=== PATIENT | female | born 1965 | race Caucasian/White ===

== ENCOUNTER 2017-02-06 16:35 | Outpatient (CLI) | payer OTHER ==
--- NOTE | 2017-02-06 18:46 | RAD ---
FOUR VIEWS RIGHT KNEE: History: Lateral and anterior pain. Comparison: None. FINDINGS: Joint spaces are preserved. No malalignment. No fracture. No joint effusion. IMPRESSION: Unremarkable four views of right knee. POS: [facility]
== END 2017-02-06 16:36 | disposition home or self-care (01) ==
LOC: RAD 16:35
PROVIDERS: ATTEND Family Medicine
DX: S80.01XA Contusion of right knee, initial encounter (principal); W19.XXXA Unspecified fall, initial encounter

== ENCOUNTER 2017-05-12 13:52 | Outpatient (CLI) | payer OTHER | END 2017-05-12 13:53 | disposition home or self-care (01) | LOC: BICMAMMO 13:52 | PROVIDERS: ATTEND Obstetrics & Gynecology | DX: Z12.31 Encounter for screening mammogram for malignant neoplasm of breast (principal); R92.1 Mammographic calcification found on diagnostic imaging of breast | CPT/HCPCS: 77063; 77067 ==

== ENCOUNTER 2017-06-14 15:27 | Outpatient (CLI) | payer OTHER | END 2017-06-14 15:28 | disposition home or self-care (01) | LOC: BICMRI 15:27 | PROVIDERS: ATTEND Family Medicine | DX: R51 Headache (principal) | CPT/HCPCS: 70551 ==

== ENCOUNTER 2018-10-01 12:14 | Outpatient (CLI) | payer OTHER ==
--- NOTE | 2018-10-01 12:38 | MMO ---
Bilateral MAMMO Bilat Screen [facility]. CLINICAL HISTORY: Patient is 53 years old and is seen for screening. The patient has no family history of breast cancer. The patient has no personal history of cancer. VIEWS: The views performed were: bilateral craniocaudal with tomosynthesis and bilateral mediolateral oblique with tomosynthesis. FILMS COMPARED: The present examination has been compared to prior imaging studies performed at [facility] on 09/16/2010, 01/23/2012 and 05/12/2017. MAMMOGRAM FINDINGS: There are scattered fibroglandular densities. There are benign appearing calcifications seen in the left breast. There are no suspicious masses, suspicious calcifications, or new areas of architectural distortion. IMPRESSION: THERE IS NO MAMMOGRAPHIC EVIDENCE OF MALIGNANCY. A ROUTINE FOLLOW-UP MAMMOGRAM IN 1 YEAR IS RECOMMENDED. THE RESULTS OF THIS EXAM WERE SENT TO THE PATIENT. ACR BI-RADS Category 2 - Benign finding MAMMOGRAPHY NOTE: 1. A negative mammogram report should not delay a biopsy if a dominant of clinically suspicious mass is present. 2. Approximately 10% to 15% of breast cancers are not detected by mammography. 3. Adenosis and dense breasts may obscure an underlying neoplasm.
== END 2018-10-01 12:15 | disposition home or self-care (01) ==
LOC: BICMAMMO 12:14
PROVIDERS: ATTEND Family Medicine
DX: Z12.31 Encounter for screening mammogram for malignant neoplasm of breast (principal)
CPT/HCPCS: 77063; 77067

== ENCOUNTER 2019-06-26 15:10 | Outpatient (CLI) | payer OTHER ==
--- NOTE | 2019-06-26 16:19 | MRI ---
MRI of thecervical spine: 06/26/2019 COMPARISON:None available HISTORY:Cervical radiculopathy, neck pain with bilateral hand numbness TECHNIQUE: Multiplanar multisequence MR imaging of thecervical spine without contrast Findings:Sagittal STIR imaging demonstrates no focal area of osseous marrow edema. There is 3 mm of anterolisthesis at C4-5. C2-3: There is facet hypertrophy on the left with mild left neural foraminal stenosis. No significant central canal or right neural foraminal stenosis. C3-4: Bilateral facet and uncovertebral osteophyte formation, right greater than left. Disc space yumi rowing with disc desiccation and mild disc bulge. No significant central canal stenosis. Mild left and moderate right neural foraminal stenosis. C4-5: There is disc space narrowing with disc desiccation and mild disc bulge partially patient the v entral thecal sac and causing mild central canal stenosis. Mild neural foraminal stenosis on the right secondary to facet and uncovertebral osteophyte formation. C5-6: There is disc space narrowing with disc desiccation and mild disc bulge. This partially effaces the ventral thecal sac and causes mild central canal stenosis. Bilateral facet and uncovertebral osteophyte formation, right greater than left. Moderate bilateral neural foraminal stenosis, right gr eater than left. C6-7: There is disc space narrowing and disc desiccation with mild disc bulge. Partial effacement of the ventral thecal sac. No significant central canal stenosis. No significant neural foraminal stenosis. C7-T1: Mild bilateral facet hypertrophy. No significant central canal or neural foraminal stenosis. D isc space narrowing with disc desiccation and mild disc bulge noted. No focal area of abnormal signal intensity identified within the cervical cord. IMPRESSION:Multilevel cervical spine degenerative change as detailed above.
== END 2019-06-26 15:11 | disposition home or self-care (01) ==
LOC: BICMRI 15:10
PROVIDERS: ATTEND Family Medicine
DX: M47.22 Other spondylosis with radiculopathy, cervical region (principal); M47.813 Spondylosis without myelopathy or radiculopathy, cervicothoracic region
CPT/HCPCS: 72141

== ENCOUNTER 2020-01-10 14:32 | Outpatient (CLI) | payer OTHER ==
--- NOTE | 2020-01-13 07:48 | MMO ---
Bilateral MAMMO Bilat Screen [facility]. CLINICAL HISTORY: Patient is 54 years old and is seen for screening. The patient has no family history of breast cancer. The patient has no personal history of cancer. VIEWS: The views performed were: bilateral craniocaudal with tomosynthesis and bilateral mediolateral oblique with tomosynthesis. FILMS COMPARED: The present examination has been compared to prior imaging studies performed at [facility] on 09/16/2010, 01/23/2012, 05/12/2017 and 10/01/2018. This study has been interpreted with the assistance of computer-aided detection. MAMMOGRAM FINDINGS: There are scattered fibroglandular densities. There are benign appearing calcifications seen in both breasts. There are no suspicious masses, suspicious calcifications, or new areas of architectural distortion. IMPRESSION: THERE IS NO MAMMOGRAPHIC EVIDENCE OF MALIGNANCY. A ROUTINE FOLLOW-UP MAMMOGRAM IN 1 YEAR IS RECOMMENDED. THE RESULTS OF THIS EXAM WERE SENT TO THE PATIENT. ACR BI-RADS Category 2 - Benign finding MAMMOGRAPHY NOTE: 1. A negative mammogram report should not delay a biopsy if a dominant of clinically suspicious mass is present. 2. Approximately 10% to 15% of breast cancers are not detected by mammography. 3. Adenosis and dense breasts may obscure an underlying neoplasm. Reported by: PEG MENDOZA MD Electonically Signed: [id number]
== END 2020-01-10 14:33 | disposition home or self-care (01) ==
LOC: BICMAMMO 14:32
PROVIDERS: ATTEND Family Medicine
DX: Z12.31 Encounter for screening mammogram for malignant neoplasm of breast (principal)
CPT/HCPCS: 77063; 77067

== ENCOUNTER 2021-01-15 14:42 | Outpatient (CLI) | payer OTHER | END 2021-01-15 14:43 | disposition home or self-care (01) | LOC: BICMAMMO 14:42 | PROVIDERS: ATTEND Family Medicine | DX: Z12.31 Encounter for screening mammogram for malignant neoplasm of breast (principal); Z80.3 Family history of malignant neoplasm of breast | CPT/HCPCS: 77063; 77067 ==

== ENCOUNTER 2021-06-16 16:46 | Outpatient (CLI) | payer BC | END 2021-06-16 16:47 | disposition home or self-care (01) | LOC: BICRAD 16:46 | PROVIDERS: ATTEND Family Medicine | DX: G62.9 Polyneuropathy, unspecified (principal); M47.816 Spondylosis without myelopathy or radiculopathy, lumbar region | CPT/HCPCS: 72100 ==

== ENCOUNTER 2021-09-24 15:47 | Outpatient (CLI) | payer BC | END 2021-09-24 15:48 | disposition home or self-care (01) | LOC: SCSRAD 15:47 | PROVIDERS: ATTEND Family Medicine | DX: M79.671 Pain in right foot (principal); M77.31 Calcaneal spur, right foot ==

== ENCOUNTER 2022-01-12 12:56 | Outpatient (CLI) | payer BC ==
[2022-01-12 13:57] LABS: #Eosinphils 0.2 10x3/uL (0.0-0.5); #Monocytes 0.5 10x3/uL (0.0-1.1); #Neutrophils 3.1 10x3/uL (1.5-8.4); %Basophils 0.6 % (0.0-2.0); %Lymphocytes 29.9 % (18.0-47.0); %Monocytes 8.8 % (0.0-10.0); %Neutrophils 57.5 % (40.0-75.0); Hemoglobin 13.1 g/dL (12.0-15.5); Mean Corpuscular HGB CONC 33.8 g/dL (32.0-36.0); Mean Corpuscular Hemoglobin 29.7 pg (27.0-33.0); Mean Platelet Volume 8.8 fl (7.4-10.4); Platelet Count 293 10x3/uL (150-450); RBC Distribution Width 12.7 % (11.5-14.5); Red Blood Cell (RBC) Count 4.41 10x6/uL (3.90-5.03); White Blood Cell (WBC) Count 5.3 10x3/uL (3.5-10.5)
[2022-01-12 14:07] LABS: Anion Gap 12 mmol/L (10-20); BUN (Urea Nitrogen) 8 mg/dL (9.8-20.1); Calc. Creatinine Clearance 0 mL/min (70-130); Calcium 9.1 mg/dL (7.8-10.44); Carbon Dioxide 28 mmol/L (22-29); Chloride 104 mmol/L (98-107); Estimated GFR 80; Potassium 3.7 mmol/L (3.5-5.1); Sodium 140 mmol/L (136-145)
[2022-01-12 14:14] LABS: Glucose 57 mg/dL (70-105)
== END 2022-01-12 12:57 | disposition home or self-care (01) ==
LOC: LABBT 12:56
PROVIDERS: ATTEND Orthopaedic Surgery
DX: Z01.818 Encounter for other preprocedural examination (principal); S52.501A Unspecified fracture of the lower end of right radius, initial encounter for closed fracture; Z20.822 Contact with and (suspected) exposure to COVID-19
CPT/HCPCS: 80048; 85025; 87811; 93005; 93010

== ENCOUNTER 2022-03-03 15:43 | Outpatient (CLI) | payer BC | END 2022-03-03 15:44 | disposition home or self-care (01) | LOC: BICMAMMO 15:43 | PROVIDERS: ATTEND Family Medicine | DX: Z12.31 Encounter for screening mammogram for malignant neoplasm of breast (principal); Z80.3 Family history of malignant neoplasm of breast | CPT/HCPCS: 77063; 77067 ==

== ENCOUNTER 2023-07-12 14:32 | Outpatient (CLI) | payer BC | END 2023-07-12 14:33 | disposition home or self-care (01) | LOC: BICMAMMO 14:32 | PROVIDERS: ATTEND Family Medicine | DX: Z12.31 Encounter for screening mammogram for malignant neoplasm of breast (principal); Z80.3 Family history of malignant neoplasm of breast | CPT/HCPCS: 77063; 77067 ==